=== PATIENT | male | born 1990 | race African-American/Black ===

== ENCOUNTER 2019-01-20 16:16 | Emergency (ER) | payer SELFPAY ==
[~2019-01-20] VITALS: Ht 177.8 cm; Wt 86.0 kg
[2019-01-20] MEDS ORDERED: LIDOCAINE HCL 4% CREAM 76GM TUBE TP ONE (19:30)
[2019-01-20] MEDS ORDERED: LIDOCAINE HCL/PF 1% 10 MG/ML 5ML VIAL IJ ONE (19:30)
[2019-01-20] MEDS ORDERED: HYDROCODONE/ACETAMINOPHEN 5/325MG TABLET PO ONE (19:30)
[2019-01-20 21:10] VITALS: BP 134/72
== END 2019-01-20 21:12 | disposition home or self-care (01) ==
LOC: ER 16:16
DX: K64.5 Perianal venous thrombosis (principal)
CPT/HCPCS: 46083; 99284; J3490; Z7610